=== PATIENT | female | born 2000 | race African-American/Black ===

== ENCOUNTER 2019-05-09 08:52 | Emergency (ER) | payer SELFPAY ==
[2019-05-09] MEDS ORDERED: diphenhydrAMINE 25 MG CAP ONE (09:27)
== END 2019-05-09 09:36 | disposition home or self-care (01) ==
LOC: ERS 08:52
DX: L25.9 Unspecified contact dermatitis, unspecified cause (principal); F41.9 Anxiety disorder, unspecified
CPT/HCPCS: 99283; Q0163